=== PATIENT | female | born 1955 | race Caucasian/White ===

== ENCOUNTER → 2017-08-17 | Outpatient (CLI) | payer BC ==
--- NOTE | 2017-08-17 15:27 | RADIOLOGY REPORT (SQ) ---
EXAM DESCRIPTION: NM 3 PHASE BONE SCAN COMPLETED DATE/TIME: 08/17/2017 3:04 pm REASON FOR STUDY: *W/FLOW* FX LEFT LATERAL SESANMOID BONE COMPARISON: Outside plain films from 08/13/2017, [facility] RADIONUCLIDE AND DOSE: 21.3 millicuries Tc99m MDP. The route of agent administration: Intravenous. ADDITIONAL DRUGS AND DOSES: None. TECHNIQUE: Following injection of the radiopharmaceutical, serial blood flow images acquired. Equil ibrium blood pool images then acquired. Routine delayed images at 3 hours acquired of the areas of c linical concern with additional focused images as needed. AREA OF INTEREST: Bilateral feet LIMITATIONS: None. FINDINGS: VASCULAR FLOW IMAGES: Asymmetric increased blood flow plantar left foot along the 1st meta tarsophalangeal region BLOOD POOL IMAGES: Asymmetric increased blood pool activity, plantar left foot along the 1st metatars ophalangeal joint region BONES: Delayed images demonstrate markedly increased uptake at the left 1st metatarsophalangeal joint region, with increased uptake along the sesamoid bones, 1st metatarsal head and base great toe proxi mal phalanx. There is mild increased uptake at the right 1st metatarsophalangeal joint, along the lateral sesamoid bone region. OTHER: No other significant finding. IMPRESSION: Positive study on the left, on blood flow blood pool and delayed imaging of at the 1st m etatarsophalangeal joint. Findings are worrisome for active infection or inflammation. Consider MRI of the left foot without and with contrast for followup Mild increased uptake right 1st metatarsophalangeal joint delayed imaging only, along the lateral ses amoid bone. Clinical correlation for sesamoid bone dysfunction. COMMENT: Quality measure 147: Current bone scan is compared with any available plain radiographs, p rior bone scans, and CT/MRI. TECHNICAL DOCUMENTATION: JOB ID: [id number] [employer]- All Rights Reserved Reading location - IP/workstation name: [email or web address]
== END ==
LOC: RAD 10:57
PROVIDERS: ATTEND Podiatrist Foot Surgery
DX: S92.812A Other fracture of left foot, initial encounter for closed fracture (principal); X58.XXXA Exposure to other specified factors, initial encounter
CPT/HCPCS: 78315; A9561; Q9969